=== PATIENT | female | born 1965 | race Caucasian/White ===

== ENCOUNTER 2023-12-20 21:23 | Emergency (ER) | payer BC, SELFPAY ==
[2023-12-20 21:26] VITALS: BP 171/80
--- NOTE | 2023-12-20 21:55 | ED.GENMED ---
History of Present Illness
General
Chief Complaint: DVT/Possible Blood Clot
Source: patient and family
Exam Limitations: none
Time Seen by Provider: 12/20/23 21:37
Nursing documentation reviewed up to this point in time: agreed with
Travel History
Have you had any contact with someone who has COVID-19?: No
Do you have any symptoms of coronavirus? Fever > 100 degrees, chills, cough, shortness of breath, sore throat, loss of taste or smell, muscle aches, or headache?: No
History of Present Illness
History of Present Illness:
58-year-old female history of hypercholesterolemia, no history of DVT PE non-smoker social drinker no hormonal therapy had a URI couple weeks ago thought it could have been COVID developed some calf and thigh pain started taking an aspirin
empirically has some pain worse with driving better with rest, no chest pain or shortness of breath she did recently return from [place] had some pain in her calf and thigh did get better was driving tonight worsened
Past History
Past History
ED Past Medical History: Hypercholesterolemia
Social History
Tobacco: Non-smoker
Alcohol: Occasional
Drug: None
Personal:
Living: with family
Employment: Employed
Review of Systems
Review of Systems
All Other Systems: Not applicable
Constitutional: Denies fever, fatigue or chills
EENT: Reports no symptoms
Respiratory: Reports no symptoms; Denies trouble breathing
Cardiac: Denies chest pain or syncope
ABD/GI: Reports no symptoms
Musculoskeletal: Reports muscle pain and muscle stiffness
Skin: Reports no symptoms
Neurological: Reports no symptoms
Phy Exam
Physical Exam
Physical Exam:
Physical Exam
General: no apparent distress, not acutely ill
Neck: No jaundice
Heart: s1/s2 regular rate and rhythm, no murmur. equal radial pulses.
Lungs: no acute respiratory distress. clear bilaterally
Neuro: alert and oriented. no focal neurological deficits
Skin: no rash
Psychiatric: well kept. interactive and cooperative
Extremities: Mild swelling in the right calf no pain or swelling in the right popliteal fossa mild swelling in the right thigh no cellulitic changes no ischemic changes
Course
Orders/Labs/Results
Orders:
Orders
12/20/23 21:37
US Periph Venous LOWER Ext RT Urgent
Comment:
Reason For Exam: pain
12/20/23 22:40
Ibuprofen [Motrin] 600 mg PO NOW STA
Vital Signs
Initial and Last Documented VS:
Initial Vital Signs
Temp Pulse Resp BP Pulse Ox
97.7 F 62 19 171/80 100
12/20/23 21:26 12/20/23 21:26 12/20/23 21:26 12/20/23 21:26 12/20/23 21:26
Last Documented Vital Signs
Temp Pulse Resp BP Pulse Ox
97.7 F 71 16 171/80 98
12/20/23 21:26 12/20/23 22:47 12/20/23 22:47 12/20/23 21:26 12/20/23 22:47
*Critical Care Note
Total Time (30-74mins, 75-104mins- exclusive of procedures): Not Applicable
Update Note
Update Note:
Update Doppler report noted will discharge with Motrin
ED Attending Note
-
Portions of this chart may have been created with voice recognition software.� Occasional wrong word or��sound alike� substitutions may have occurred due to the inherent limitations of voice recognition software.
Discharge Plan
Departure
Patient Disposition: Home (Routine Discharge)
Date of Disposition: 12/20/23
Time of Disposition: 22:41
Patient with high blood pressure during this ER visit?: No
Condition: Good
Covid-19: Not Applicable
Discharge Problem:
Leg pain
Instructions: Leg Muscle Strain ED
Prescriptions:
New
ibuprofen 600 mg tablet
600 mg PO Q8H PRN (Reason: Pain) Qty: 20 0RF
Interventions
Interventions:
*Risk Screen - Suicide Last Done: 12/20/23 21:26
*General Assessment Last Done: 12/20/23 21:26
*Neglect/Abuse Screening Last Done: 12/20/23 21:26
ED- Fall Risk Assessment Last Done: 12/20/23 22:55
*ED COVID-19 Vaccine History Last Done: 12/20/23 21:26
*Nursing Disposition Last Done: 12/20/23 22:55
ED- Cardiac Assessment Last Done: 12/20/23 22:46
ED- Pulmonary Assessment Last Done: 12/20/23 22:46
ED-Peripheral Vascular Assessment Last Done: 12/20/23 22:46
ED-Skin Assessment Last Done: 12/20/23 22:46
Discharge Date and Time
Discharge Date/Time: 12/20/23 22:55
[2023-12-20] MEDS: MOTRIN 600 MG PO (22:44)
== END 2023-12-20 22:55 | disposition home or self-care (01) ==
LOC: EMR 21:23
PROVIDERS: EMERGENCY PHYSICIAN Emergency Medicine; FAMILY PHYSICIAN Internal Medicine
DX: M79.604 Pain in right leg (principal); M79.18 Myalgia, other site; M79.89 Other specified soft tissue disorders; E78.00 Pure hypercholesterolemia, unspecified
CPT/HCPCS: 99284; 93971